=== PATIENT | female | born 2000 | race Caucasian/White ===

== ENCOUNTER 2019-09-21 12:31 | Emergency (ER) | payer OTHER, MEDICAID ==
[~2019-09-21] VITALS: Ht 165.1 cm; Wt 96.6 kg
[~2019-09-21 12:31] MED LIST: ALBUTEROL INHAL17 GM; ALBUTEROL2.5 MG/32; CIPROFLOXACIN500 M3 PO; CLARITIN10 M2; CONCERTA18 MG; DELSYM30 MG/5 ML; IBUPROFEN 400400 M2 PO; MIRALAX255 GM PO; PAXIL30 MG PO; PREDNISONE 20 M20 MG
[2019-09-21] MEDS ORDERED: [UNRECOGNIZED DRUG - REMARK] PO (12:49)
[2019-09-21 12:59] LABS: URINE BILIRUBIN NEGATIVE (Negative); URINE BLOOD NEGATIVE (Negative); URINE CLARITY CLEAR; URINE COLOR YELLOW; URINE GLUCOSE-RANDOM NEGATIVE (Negative); URINE KETONES NEGATIVE (Negative); URINE LEUKOCYTES-REFLEX 1+ (Negative); URINE NITRITE-REFLEX NEGATIVE (Negative); URINE PROTEIN 2+ (Negative)
[2019-09-21 13:07] LABS: SQUAMOUS 4-10 Moderate /LPF (0-3)
[2019-09-21 13:08] LABS: AMORPHOUS PHOSPHATES Many /LPF (None Seen); CASTS None Seen /LPF (None Seen); MUCUS 4-6 Moderate strn/LPF (None Seen); TRIPLE PHOSPHATE CRYSTALS 0-3 Few /LPF (None Seen); URINE RBC 0-2 Rare /HPF (0-2); URINE WBC-REFLEX 6-15 Few /HPF (0-5)
[2019-09-21] MEDS ORDERED: ZANAFLEX4 MG PO (13:15)
[2019-09-21] MEDS ORDERED: IBUPROFEN 800800 M1 PO (13:15)
[2019-09-21] MEDS ORDERED: AMOXICILLIN 50500 MG PO (13:15)
[2019-09-21 15:04] VITALS: BP 120/72
== END 2019-09-21 14:53 | disposition left against medical advice (07) ==
LOC: M.ERS 12:31
PROVIDERS: Nurse Practitioner Family
DX: S09.90XA Unspecified injury of head, initial encounter (principal); S50.01XA Contusion of right elbow, initial encounter; H66.92 Otitis media, unspecified, left ear; M54.2 Cervicalgia; J02.9 Acute pharyngitis, unspecified; F32.9 Major depressive disorder, single episode, unspecified; Y04.0XXA Assault by unarmed brawl or fight, initial encounter; Y93.89 Activity, other specified; Y92.89 Other specified places as the place of occurrence of the external cause; Y99.8 Other external cause status

== ENCOUNTER 2019-10-02 20:28 | Emergency (ER) | payer OTHER, MEDICAID ==
[~2019-10-02] VITALS: Ht 165.1 cm; Wt 94.3 kg
[~2019-10-02 20:28] MED LIST changes: +AMOXICILLIN 50500 MG PO; +IBUPROFEN 800800 M1 PO; +ZANAFLEX4 MG PO; +[UNRECOGNIZED DRUG - REMARK] PO
[2019-10-02 20:56] LABS: URINE BILIRUBIN NEGATIVE (Negative); URINE BLOOD 1+ (Negative); URINE CLARITY SL CLOUDY; URINE COLOR YELLOW; URINE GLUCOSE-RANDOM NEGATIVE (Negative); URINE KETONES NEGATIVE (Negative); URINE LEUKOCYTES-REFLEX 1+ (Negative); URINE NITRITE-REFLEX NEGATIVE (Negative); URINE PROTEIN 1+ (Negative); URINE SPECIFIC GRAVITY 1.025 (1.005-1.030); URINE UROBILINOGEN 0.2 E.U./dl (0.2-1.0)
[2019-10-02 21:02] LABS: MUCUS None Seen strn/LPF (None Seen); SQUAMOUS 0-3 Few /LPF (0-3)
[2019-10-02 21:03] LABS: URINE WBC-REFLEX >25 Many /HPF (0-5)
[2019-10-02 21:04] LABS: BACTERIA-REFLEX 1-9 Few /HPF (None Seen); CASTS None Seen /LPF (None Seen); CRYSTALS None Seen /LPF (None Seen); URINE RBC 0-2 Rare /HPF (0-2); WBC CLUMPS Few (None Seen)
[2019-10-02] MEDS ORDERED: MACROBID 100 M100 M1 PO (21:18)
[2019-10-02 21:33] VITALS: BP 102/64
== END 2019-10-02 21:34 | disposition home or self-care (01) ==
LOC: M.ERS 20:28
PROVIDERS: Nurse Practitioner Family
DX: N39.0 Urinary tract infection, site not specified (principal); R11.2 Nausea with vomiting, unspecified; F32.9 Major depressive disorder, single episode, unspecified

== ENCOUNTER 2019-11-18 19:21 | Emergency (ER) | payer OTHER, MEDICAID ==
[~2019-11-18] VITALS: Ht 165.1 cm; Wt 94.8 kg
[~2019-11-18 19:21] MED LIST changes: +MACROBID 100 M100 M1 PO
[2019-11-18] MEDS ORDERED: IBUPROFEN 600600 M1 PO (20:45)
[2019-11-18 21:30] VITALS: BP 108/62
== END 2019-11-18 21:40 | disposition home or self-care (01) ==
LOC: M.ERS 19:21
DX: S90.32XA Contusion of left foot, initial encounter (principal); S50.02XA Contusion of left elbow, initial encounter; F32.9 Major depressive disorder, single episode, unspecified; V87.8XXA Person injured in other specified noncollision transport accidents involving motor vehicle (traffic), initial encounter; Y93.89 Activity, other specified; Y92.89 Other specified places as the place of occurrence of the external cause; Y99.8 Other external cause status

== ENCOUNTER 2019-12-25 20:57 | Emergency (ER) | payer OTHER, MEDICAID ==
[~2019-12-25] VITALS: Ht 165.1 cm; Wt 92.1 kg
[~2019-12-25 20:57] MED LIST changes: +IBUPROFEN 600600 M1 PO
[2019-12-25] MEDS ORDERED: NAPROXEN DELAY500 M1 PO (21:31)
[2019-12-25 21:51] VITALS: BP 127/79
== END 2019-12-25 21:52 | disposition home or self-care (01) ==
LOC: M.ERS 20:57
DX: T23.161A Burn of first degree of back of right hand, initial encounter (principal); T23.121A Burn of first degree of single right finger (nail) except thumb, initial encounter; T31.0 Burns involving less than 10% of body surface; X10.2XXA Contact with fats and cooking oils, initial encounter; Y93.G3 Activity, cooking and baking; Y92.89 Other specified places as the place of occurrence of the external cause; Y99.8 Other external cause status

== ENCOUNTER 2020-02-19 23:09 | Emergency (ER) | payer OTHER, MEDICAID ==
[~2020-02-19] VITALS: Ht 165.1 cm; Wt 93.4 kg
[~2020-02-19 23:09] MED LIST changes: +NAPROXEN DELAY500 M1 PO
[2020-02-19] MEDS ORDERED: PROZAC20 M1 PO (23:27)
[2020-02-19 23:41] LABS: URINE BILIRUBIN NEGATIVE (Negative); URINE BLOOD 1+ (Negative); URINE CLARITY SL CLOUDY; URINE COLOR YELLOW; URINE GLUCOSE-RANDOM NEGATIVE (Negative); URINE KETONES NEGATIVE (Negative); URINE LEUKOCYTES-REFLEX NEGATIVE (Negative); URINE NITRITE-REFLEX NEGATIVE (Negative); URINE PROTEIN NEGATIVE (Negative)
[2020-02-19 23:51] LABS: ABSOLUTE BASOPHILS 0.1 thou/uL (0.0-0.2); ABSOLUTE EOSINOPHILS 0.3 thou/uL (0.0-0.7); ABSOLUTE LYMPHOCYTES 2.5 thou/uL (0.8-5.3); ABSOLUTE MONOCYTES 0.8 thou/uL (0.0-1.2); ABSOLUTE NEUTROPHILS 5.3 thou/uL (1.6-8.1); BASOPHILS 0.9 %; EOSINOPHILS 3.6 %; HEMATOCRIT 40.9 % (37.0-47.0); HEMOGLOBIN 13.5 gm/dL (12.0-15.0); LYMPHOCYTES 27.6 %; MCH 28.3 pg (26.0-34.0); MCV 85.8 fL (80.0-100.0); MONOCYTES 8.4 %; MPV 8.2 fl. (7.2-11.1); NUCLEATED RBCS 0 /100WBC; PLATELET COUNT* 289 thou/uL (150-400); POLYS 59.5 %; RBC 4.77 mil/uL (4.20-5.00); RDW-CV 14.3 % (10.5-14.5)
[2020-02-19 23:57] LABS: CALCIUM 8.5 mg/dL (8.5-10.1); CREATININE 0.7 mg/dL (0.6-1.3)
[2020-02-20 00:01] LABS: ALBUMIN 3.7 g/dL (3.4-5.0); TOTAL BILIRUBIN 0.3 mg/dL (<0.1-1.0); TOTAL PROTEIN 7.4 g/dL (6.4-8.2)
[2020-02-20 00:36] VITALS: BP 115/70
[2020-02-20 00:53] LABS: CASTS None Seen /LPF (None Seen); SQUAMOUS 4-10 Moderate /LPF (0-3)
[2020-02-20 00:54] LABS: URINE WBC-REFLEX 0-5 Rare /HPF (0-5)
[2020-02-20 00:55] LABS: AMORPHOUS PHOSPHATES Many /LPF (None Seen); BACTERIA-REFLEX 1-9 Few /HPF (None Seen); URINE RBC 3-10 Few /HPF (0-2)
--- NOTE | 2020-02-20 09:43 | EKG ---
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: JAYME : 2000 Requested By: Yareli Ragland Order Number: [id number] MD: Mauricio Garcia Measurements Intervals [place] Rate: 67 P: 43 [place]: 158 QRS: 2 QRSD: 92 T: 11 QT: 422 QTc: 446 Interpretive Statements Sinus rhythm RSR' in V1 or V2, probably normal variant Compared to ECG 03/09/2011 18:09:33 no change Electronically Signed On 02-20-2020 9:43:45 [employer] RESOURCE TEACHER by Mauricio Garcia [email or web address] <ELECTRONICALLY SIGNED> By: Mauricio Garcia MD, [facility] 02/20/20 0943 2333 2333 Mauricio Garcia MD, [facility] /EPI
== END 2020-02-20 00:36 | disposition home or self-care (01) ==
LOC: M.ERS 23:09
PROVIDERS: Emergency Medicine
DX: R42 Dizziness and giddiness (principal); R53.1 Weakness; R00.0 Tachycardia, unspecified; R53.83 Other fatigue; F32.9 Major depressive disorder, single episode, unspecified; G43.909 Migraine, unspecified, not intractable, without status migrainosus; Z79.899 Other long term (current) drug therapy

== ENCOUNTER 2020-04-25 10:08 | Emergency (ER) | payer OTHER, MEDICAID ==
[~2020-04-25] VITALS: Ht 165.1 cm; Wt 94.3 kg
[~2020-04-25 10:08] MED LIST changes: +PROZAC20 M1 PO
[2020-04-25 10:37] VITALS: BP 92/54
== END 2020-04-25 10:38 | disposition home or self-care (01) ==
LOC: M.ERS 10:08
DX: S61.213A Laceration without foreign body of left middle finger without damage to nail, initial encounter (principal); Z79.899 Other long term (current) drug therapy; W26.8XXA Contact with other sharp object(s), not elsewhere classified, initial encounter; Y93.89 Activity, other specified; Y92.89 Other specified places as the place of occurrence of the external cause; Y99.8 Other external cause status

== ENCOUNTER 2020-04-30 18:59 | Emergency (ER) | payer OTHER, MEDICAID ==
[~2020-04-30] VITALS: Ht 165.1 cm; Wt 94.3 kg
[2020-04-30] MEDS ORDERED: NAPROSYN500 MG PO (19:13)
[2020-04-30] MEDS ORDERED: BIRTH CONTROL (19:13)
[2020-04-30 19:32] LABS: ABSOLUTE BASOPHILS 0.1 thou/uL (0.0-0.2); ABSOLUTE EOSINOPHILS 0.2 thou/uL (0.0-0.7); ABSOLUTE LYMPHOCYTES 2.2 thou/uL (0.8-5.3); ABSOLUTE MONOCYTES 0.6 thou/uL (0.0-1.2); ABSOLUTE NEUTROPHILS 6.2 thou/uL (1.6-8.1); BASOPHILS 0.9 %; EOSINOPHILS 2.2 %; HEMATOCRIT 40.1 % (37.0-47.0); HEMOGLOBIN 13.5 gm/dL (12.0-15.0); LYMPHOCYTES 23.5 %; MCH 28.3 pg (26.0-34.0); MCHC 33.6 g/dL (28.0-37.0); MCV 84.4 fL (80.0-100.0); MONOCYTES 6.8 %; MPV 8.3 fl. (7.2-11.1); NUCLEATED RBCS 0 /100WBC; PLATELET COUNT* 301 thou/uL (150-400); POLYS 66.6 %; RBC 4.75 mil/uL (4.20-5.00); RDW-CV 13.6 % (10.5-14.5); WBC 9.3 thou/uL (4.0-11.0)
[2020-04-30 19:38] LABS: CALCIUM 9.3 mg/dL (8.5-10.1); CREATININE 0.7 mg/dL (0.6-1.3); POTASSIUM 3.8 mmol/L (3.5-5.1)
[2020-04-30 19:39] LABS: URINE BILIRUBIN NEGATIVE (Negative); URINE BLOOD NEGATIVE (Negative); URINE CLARITY CLEAR; URINE COLOR YELLOW; URINE GLUCOSE-RANDOM NEGATIVE (Negative); URINE KETONES NEGATIVE (Negative); URINE LEUKOCYTES-REFLEX TRACE (Negative); URINE NITRITE-REFLEX NEGATIVE (Negative); URINE PROTEIN NEGATIVE (Negative); URINE SPECIFIC GRAVITY 1.015 (1.005-1.030); URINE UROBILINOGEN 0.2 E.U./dl (0.2-1.0)
[2020-04-30 19:47] LABS: AMP/METHAMP Negative (Negative); BARBITURATES Negative (Negative); BENZODIAZEPINES Negative (Negative); COCAINE Negative (Negative); METHADONE Negative (Negative); OPIATES Negative (Negative); PCP Negative (Negative); THC Negative (Negative)
[2020-04-30 19:48] LABS: BACTERIA-REFLEX 1-9 Few /HPF (None Seen); CASTS None Seen /LPF (None Seen); CRYSTALS None Seen /LPF (None Seen); SQUAMOUS 0-3 Few /LPF (0-3); URINE RBC 0-2 Rare /HPF (0-2); URINE WBC-REFLEX 0-5 Rare /HPF (0-5)
[2020-04-30 19:49] LABS: ALBUMIN 3.4 g/dL (3.4-5.0); TOTAL BILIRUBIN 0.3 mg/dL (<0.1-1.0)
[2020-04-30 20:18] VITALS: BP 120/78
--- NOTE | 2020-05-01 15:58 | EKG ---
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 Vice President: DAVID : 2000 Requested By: Yareli Ragland Order Number: [id number] MD: Scott Mendoza Measurements Intervals [place] Rate: 79 P: 48 [place]: 164 QRS: 4 QRSD: 96 T: 17 QT: 391 QTc: 449 Interpretive Statements Sinus rhythm RSR' in V1 or V2, probably normal variant Compared to ECG 02/19/2020 23:33:25 No significant changes Electronically Signed On 05-01-2020 15:58:43 BINDER OPERATOR by Scott Mendoza [email or web address] <ELECTRONICALLY SIGNED> By: Scott Mendoza MD, FACC 05/01/20 1558 190 08 Scott Mendoza MD, FAC /EPI
== END 2020-04-30 20:19 | disposition home or self-care (01) ==
LOC: M.ERS 18:59
PROVIDERS: Emergency Medicine
DX: R55 Syncope and collapse (principal); R51.9 Headache, unspecified; Z79.899 Other long term (current) drug therapy; Z91.040 Latex allergy status; Z91.09 Other allergy status, other than to drugs and biological substances; Z20.828 Contact with and (suspected) exposure to other viral communicable diseases

== ENCOUNTER 2020-05-22 | Emergency (ER) | payer OTHER, MEDICAID ==
[~2020-05-22] VITALS: Ht 165.1 cm; Wt 93.4 kg
[~2020-05-22] MED LIST changes: +BIRTH CONTROL; +NAPROSYN500 MG PO
[2020-05-22 00:21] LABS: URINE BILIRUBIN NEGATIVE (Negative); URINE BLOOD NEGATIVE (Negative); URINE CLARITY CLEAR; URINE COLOR YELLOW; URINE GLUCOSE-RANDOM NEGATIVE (Negative); URINE KETONES NEGATIVE (Negative); URINE LEUKOCYTES-REFLEX NEGATIVE (Negative); URINE NITRITE-REFLEX NEGATIVE (Negative); URINE PROTEIN NEGATIVE (Negative); URINE UROBILINOGEN 0.2 E.U./dl (0.2-1.0)
[2020-05-22 00:30] LABS: AMP/METHAMP Negative (Negative); BARBITURATES Negative (Negative); BENZODIAZEPINES Negative (Negative); COCAINE Negative (Negative); METHADONE Negative (Negative); OPIATES Negative (Negative); PCP Negative (Negative); THC Negative (Negative)
[2020-05-22 00:51] LABS: ABSOLUTE BASOPHILS 0.1 thou/uL (0.0-0.2); ABSOLUTE EOSINOPHILS 0.2 thou/uL (0.0-0.7); ABSOLUTE LYMPHOCYTES 2.7 thou/uL (0.8-5.3); ABSOLUTE MONOCYTES 0.7 thou/uL (0.0-1.2); ABSOLUTE NEUTROPHILS 4.3 thou/uL (1.6-8.1); BASOPHILS 0.7 %; EOSINOPHILS 2.4 %; HEMATOCRIT 39.1 % (37.0-47.0); HEMOGLOBIN 13.1 gm/dL (12.0-15.0); LYMPHOCYTES 34.4 %; MCH 28.4 pg (26.0-34.0); MCHC 33.5 g/dL (28.0-37.0); MCV 84.8 fL (80.0-100.0); MONOCYTES 8.4 %; NUCLEATED RBCS 0 /100WBC; PLATELET COUNT* 274 thou/uL (150-400); POLYS 54.1 %; RBC 4.61 mil/uL (4.20-5.00); RDW-CV 13.6 % (10.5-14.5); WBC 7.9 thou/uL (4.0-11.0)
[2020-05-22 01:00] LABS: CALCIUM 8.9 mg/dL (8.5-10.1); CREATININE 0.8 mg/dL (0.6-1.3); POTASSIUM 3.6 mmol/L (3.5-5.1)
[2020-05-22 01:10] LABS: ALBUMIN 3.4 g/dL (3.4-5.0); MAGNESIUM 2.2 mg/dL (1.8-2.4); TOTAL BILIRUBIN 0.3 mg/dL (<0.1-1.0); TOTAL PROTEIN 6.7 g/dL (6.4-8.2)
[2020-05-22 01:16] LABS: PROTIME 10.5 Seconds (9.20-11.50)
[2020-05-22 03:43] VITALS: BP 106/68
--- NOTE | 2020-05-22 10:45 | EKG ---
[place] [address] ELECTROCARDIOGRAM REPORT Name: CHANDA DANIELS Room: [facility]#: [id number] Admission: 05/22/20 Attend Phys: Discharge: 05/22/20 Date of : [birth year] Date of Service: 05/22/20 0006 Report #: [id number] THIS REPORT FOR: //name// [facility] ED Test Date: 2020-05-22 Test Time: 00:06:46 Pat Name: CHANDA DANIELS Department: Room: Gender: F Cigarette Examiner: : 2000 Requested By: Yareli Ragland Order Number: [id number] MD: Mauricio Garcia Measurements Intervals [place] Rate: 71 P: 45 [place]: 167 QRS: 5 QRSD: 100 T: 17 QT: 417 QTc: 454 Interpretive Statements Sinus rhythm RSR' in V1 or V2, probably normal variant Compared to ECG 04/30/2020 19:09:01 No significant changes Electronically Signed On 05-22-2020 10:44:58 CREATIVE DIRECTOR by Mauricio Garcia [email or web address] <ELECTRONICALLY SIGNED> By: Mauricio Garcia MD, [facility] 05/22/20 1044 0006 0006 Mauricio Garcia MD, [facility] /EPI
== END 2020-05-22 03:43 | disposition home or self-care (01) ==
LOC: M.ERS
PROVIDERS: Emergency Medicine
DX: R55 Syncope and collapse (principal); R07.9 Chest pain, unspecified; R06.02 Shortness of breath; R53.1 Weakness; R20.2 Paresthesia of skin; H53.8 Other visual disturbances; F32.9 Major depressive disorder, single episode, unspecified; Z20.822 Contact with and (suspected) exposure to COVID-19; Z91.040 Latex allergy status; Z91.048 Other nonmedicinal substance allergy status; Z79.899 Other long term (current) drug therapy

== ENCOUNTER 2020-08-18 23:16 | Emergency (ER) | payer OTHER, MEDICAID ==
[~2020-08-18] VITALS: Ht 165.1 cm; Wt 96.6 kg
[2020-08-18] MEDS ORDERED: ENBRACE HR SOF1 EACH PO (23:29)
[2020-08-18 23:52] LABS: URINE BILIRUBIN NEGATIVE (Negative); URINE BLOOD NEGATIVE (Negative); URINE CLARITY CLEAR; URINE COLOR YELLOW; URINE GLUCOSE-RANDOM NEGATIVE (Negative); URINE KETONES NEGATIVE (Negative); URINE LEUKOCYTES-REFLEX NEGATIVE (Negative); URINE NITRITE-REFLEX NEGATIVE (Negative); URINE PROTEIN NEGATIVE (Negative); URINE UROBILINOGEN 0.2 E.U./dl (0.2-1.0)
[2020-08-18 23:58] LABS: HEMATOCRIT 37.5 % (37.0-47.0); HEMOGLOBIN 12.7 gm/dL (12.0-15.0); MCH 28.5 pg (26.0-34.0); RBC 4.47 mil/uL (4.20-5.00); RDW-CV 14.5 % (10.5-14.5); WBC 6.7 thou/uL (4.0-11.0)
[2020-08-19 00:01] LABS: AMP/METHAMP Negative (Negative); BARBITURATES Negative (Negative); BENZODIAZEPINES Negative (Negative); COCAINE Negative (Negative); METHADONE Negative (Negative); OPIATES Negative (Negative); PCP Negative (Negative); THC Negative (Negative)
[2020-08-19 00:04] LABS: CALCIUM 9.1 mg/dL (8.5-10.1); CREATININE 0.6 mg/dL (0.6-1.3); POTASSIUM 3.8 mmol/L (3.5-5.1)
[2020-08-19 00:09] LABS: ALBUMIN 3.2 g/dL (3.4-5.0); TOTAL BILIRUBIN 0.2 mg/dL (<0.1-1.0); TOTAL PROTEIN 7.3 g/dL (6.4-8.2)
[2020-08-19 02:26] VITALS: BP 123/67
== END 2020-08-19 02:27 | disposition home or self-care (01) ==
LOC: M.ERS 23:16
PROVIDERS: Personal Emergency Response Attendant
DX: O26.891 Other specified pregnancy related conditions, first trimester (principal); E86.0 Dehydration; Z3A.10 10 weeks gestation of pregnancy; Z79.899 Other long term (current) drug therapy; Z91.040 Latex allergy status; Y08.89XA Assault by other specified means, initial encounter; Y93.89 Activity, other specified; Y92.89 Other specified places as the place of occurrence of the external cause; Y99.8 Other external cause status

== ENCOUNTER 2020-09-17 11:46 | Emergency (ER) | payer OTHER, MEDICAID ==
[~2020-09-17] VITALS: Ht 165.1 cm; Wt 97.5 kg
[~2020-09-17 11:46] MED LIST changes: +ENBRACE HR SOF1 EACH PO
[2020-09-17] MEDS ORDERED: ZOFRAN ODT4 MG PO (12:04)
[2020-09-17 12:24] LABS: URINE BILIRUBIN NEGATIVE (Negative); URINE BLOOD NEGATIVE (Negative); URINE CLARITY CLEAR; URINE COLOR YELLOW; URINE GLUCOSE-RANDOM NEGATIVE (Negative); URINE KETONES NEGATIVE (Negative); URINE LEUKOCYTES-REFLEX NEGATIVE (Negative); URINE NITRITE-REFLEX NEGATIVE (Negative); URINE PROTEIN NEGATIVE (Negative)
[2020-09-17] MEDS ORDERED: AMOXICILLIN 50500 MG PO (12:28)
[2020-09-17] MEDS ORDERED: LACTULOSE PO (12:28)
[2020-09-17 12:38] VITALS: BP 116/66
== END 2020-09-17 12:39 | disposition home or self-care (01) ==
LOC: M.ERS 11:46
PROVIDERS: Nurse Practitioner Family
DX: O26.891 Other specified pregnancy related conditions, first trimester (principal); H66.91 Otitis media, unspecified, right ear; K59.00 Constipation, unspecified; R09.81 Nasal congestion; H10.11 Acute atopic conjunctivitis, right eye; Z3A.14 14 weeks gestation of pregnancy; Z91.040 Latex allergy status

== ENCOUNTER 2020-09-28 11:19 | Emergency (ER) | payer OTHER, MEDICAID ==
[~2020-09-28] VITALS: Ht 165.1 cm; Wt 88.0 kg
[~2020-09-28 11:19] MED LIST changes: +LACTULOSE PO; +ZOFRAN ODT4 MG PO
[2020-09-28 11:59] LABS: ABSOLUTE EOSINOPHILS 0.1 thou/uL (0.0-0.7); ABSOLUTE LYMPHOCYTES 1.6 thou/uL (0.8-5.3); ABSOLUTE MONOCYTES 0.5 thou/uL (0.0-1.2); ABSOLUTE NEUTROPHILS 4.5 thou/uL (1.6-8.1); BASOPHILS 0.6 %; EOSINOPHILS 1.4 %; HEMATOCRIT 36.5 % (37.0-47.0); HEMOGLOBIN 12.5 gm/dL (12.0-15.0); LYMPHOCYTES 23.6 %; MCHC 34.2 g/dL (28.0-37.0); MONOCYTES 6.8 %; MPV 8.1 fl. (7.2-11.1); NUCLEATED RBCS 0 /100WBC; PLATELET COUNT* 237 thou/uL (150-400); POLYS 67.6 %; RBC 4.45 mil/uL (4.20-5.00); RDW-CV 14.6 % (10.5-14.5); WBC 6.7 thou/uL (4.0-11.0)
[2020-09-28 12:00] LABS: URINE BILIRUBIN NEGATIVE (Negative); URINE BLOOD NEGATIVE (Negative); URINE CLARITY CLEAR; URINE COLOR YELLOW; URINE GLUCOSE-RANDOM NEGATIVE (Negative); URINE KETONES NEGATIVE (Negative); URINE LEUKOCYTES-REFLEX NEGATIVE (Negative); URINE NITRITE-REFLEX NEGATIVE (Negative); URINE PROTEIN NEGATIVE (Negative); URINE SPECIFIC GRAVITY 1.015 (1.005-1.030); URINE UROBILINOGEN 0.2 E.U./dl (0.2-1.0)
[2020-09-28 12:06] LABS: CALCIUM 8.3 mg/dL (8.5-10.1); CREATININE 0.5 mg/dL (0.6-1.3); POTASSIUM 3.6 mmol/L (3.5-5.1)
[2020-09-28 12:11] LABS: ALBUMIN 2.9 g/dL (3.4-5.0); TOTAL BILIRUBIN 0.3 mg/dL (<0.1-1.0); TOTAL PROTEIN 6.7 g/dL (6.4-8.2)
[2020-09-28 13:49] VITALS: BP 93/52
== END 2020-09-28 13:50 | disposition home or self-care (01) ==
LOC: M.ERS 11:19
PROVIDERS: Physician Assistant
DX: O21.8 Other vomiting complicating pregnancy (principal); O26.892 Other specified pregnancy related conditions, second trimester; R10.32 Left lower quadrant pain; Z3A.16 16 weeks gestation of pregnancy; Z91.040 Latex allergy status

== ENCOUNTER 2021-05-02 08:08 | Emergency (ER) | payer OTHER, MEDICAID ==
[~2021-05-02] VITALS: Ht 165.1 cm; Wt 92.1 kg
[2021-05-02] MEDS ORDERED: LEXAPRO 10 MG T10 M2 PO (08:23)
[2021-05-02] MEDS ORDERED: TESSALON PERLE100 MG PO (10:15)
[2021-05-02 10:33] VITALS: BP 123/80
--- NOTE | 2021-05-03 13:14 | EKG ---
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: : 2000 Requested By: Arcadio Reyes Order Number: [id number] MD: Scott Mendoza Measurements Intervals [place] Rate: 85 P: 46 [place]: 152 QRS: 16 QRSD: 97 T: 25 QT: 373 QTc: 444 Interpretive Statements Sinus rhythm RSR' in V1 or V2, probably normal variant Compared to ECG 05/22/2020 00:06:46 No significant changes Electronically Signed On 05-03-2021 13:13:54 GARAGE LABORER by Scott Mendoza [email or web address] <ELECTRONICALLY SIGNED> By: Scott Mendoza MD, [facility] 05/03/21 1313 4 Scott Mendoza MD, [facility] /EPI
== END 2021-05-02 10:34 | disposition home or self-care (01) ==
LOC: M.ERS 08:08
DX: U07.1 COVID-19 (principal); F32.9 Major depressive disorder, single episode, unspecified; F41.9 Anxiety disorder, unspecified; Z79.899 Other long term (current) drug therapy; Z91.040 Latex allergy status; Z91.048 Other nonmedicinal substance allergy status